=== PATIENT | female | born 1950 | race African-American/Black ===

== ENCOUNTER 2017-06-05 16:51 | Day surgery (SDC) | payer MEDICARE | END 2017-06-05 20:54 | disposition home or self-care (01) | LOC: ONC 16:51 → ONC/OP 16:51 | PROVIDERS: ATTEND Internal Medicine Hematology & Oncology | PROC: 30233N1 Transfusion of Nonautologous Red Blood Cells into Peripheral Vein, Percutaneous Approach (ICD-10-PCS; principal; 2017-06-05) | DX: D64.9 Anemia, unspecified (principal); D69.6 Thrombocytopenia, unspecified; Z88.1 Allergy status to other antibiotic agents; Z88.8 Allergy status to other drugs, medicaments and biological substances; Z87.891 Personal history of nicotine dependence | CPT/HCPCS: 36415; 80053; 82248; 83615; 84100; 84550; 86850; 86870; 86900; 86901; 86922 ==

== ENCOUNTER 2017-06-06 11:17 | Day surgery (SDC) | payer MEDICARE ==
[2017-06-06] MEDS ORDERED: Acetaminophen 500 MG TAB PO SCH (11:45)
[2017-06-06] MEDS ORDERED: diphenhydrAMINE 25 MG CAP PO SCH (11:45)
[2017-06-06] MEDS ORDERED: Sodium Chloride 0.9% 20 ML ONE (11:48)
[2017-06-06 11:57] LABS: IRF 0.397 Ratio (0.163-0.362); Reticulocyte Count 3.9 % (0.5-1.5)
[2017-06-06 17:01] VITALS: BP 99/70; TEMP 97.9
[2017-06-06 18:00] LABS: #Lymphocytes 0.3 thou/uL (1.20-3.40); #Monocytes 0.3 thou/uL (0.11-0.59); #Neutrophils 5.9 thou/uL (1.40-6.50); %Eosinophils 0.4 % (0.0-10.0); Hematocrit 29.7 % (36.0-47.0); Mean Platelet Volume 6.5 fL (7.4-10.4); Red Blood Cell (RBC) Count 3.48 mill/uL (4.20-5.40); White Blood Cell (WBC) Count 6.5 thou/uL (4.8-10.8)
== END 2017-06-06 17:48 | disposition home or self-care (01) ==
LOC: ONC/OP 11:17
PROVIDERS: ATTEND Internal Medicine Hematology & Oncology
PROC: 30233N1 Transfusion of Nonautologous Red Blood Cells into Peripheral Vein, Percutaneous Approach (ICD-10-PCS; principal; 2017-06-06)
DX: D64.9 Anemia, unspecified (principal); D69.6 Thrombocytopenia, unspecified; Z88.1 Allergy status to other antibiotic agents; Z88.8 Allergy status to other drugs, medicaments and biological substances; Z87.891 Personal history of nicotine dependence
CPT/HCPCS: 36415; 36430; 85025; 85046; 86850; 86870; 86900; 86901; 86922; A4216; P9016

== ENCOUNTER 2017-06-26 13:56 | Inpatient (IN) | payer MEDICARE ==
[2017-06-26 14:19] LABS: Oxyhemoglobin 91.8 % (94.0-97.0); Sodium 134 mmol/L (135-148)
[2017-06-26 14:20] LABS: Modified Allen's Test POSITIVE; Vent NO
[2017-06-26 14:31] LABS: Hematocrit 24.1 % (36.0-47.0); Mean Platelet Volume 7.4 fL (7.4-10.4); Red Blood Cell (RBC) Count 2.73 mill/uL (4.20-5.40); White Blood Cell (WBC) Count 13.7 thou/uL (4.8-10.8)
[2017-06-26 14:36] LABS: Prothrombin Time 15.1 SEC (12.0-14.7)
[2017-06-26 14:37] LABS: PTT 41.5 SEC (22.9-36.1)
[2017-06-26 14:53] LABS: ALT (SGPT) 19 U/L (8-55); AST (SGOT) 19 U/L (5-34); Alkaline Phosphatase 148 U/L (40-150); Anion Gap 21 mmol/L (10-20); BUN (Urea Nitrogen) 26 mg/dL (9.8-20.1); Bilirubin, Total 0.3 mg/dL (0.2-1.2); CK (CPK) 150 U/L (29-168); Calc. Creatinine Clearance 0 mL/min (70-130); Calcium 9.2 mg/dL (7.8-10.44); Carbon Dioxide 17 mmol/L (23-31); Chloride 98 mmol/L (98-107); Estimated GFR-MDRD 70; Globulin 5.4 g/dL (2.4-3.5); Lipase 9 U/L (8-78); Protein, Total 8.6 g/dL (6.0-8.3)
[2017-06-26 14:59] LABS: Anisocytosis SLIGHT = 6-15 cells (100X) (0-5/hpf); Band 15 % (5-11); Hypochromia SLIGHT = 6-15 cells (100X) (0-5/hpf); Metamyelocyte 1 % (0-0); Neutrophil 66 % (42-75); Reactive Lymphocytes 2 % (0-10)
--- NOTE | 2017-06-26 14:59 | RAD ---
PORTABLE CHEST 1 VIEW: DATE: 06/26/17. TIME: 2:38 p.m. HISTORY: Shortness of breath and hemoptysis. FINDINGS: The heart size is normal. There is mild elevation of the right hemidiaphragm. There is an opacity in the right upper lobe. Pt is scheduled for a CTPA. POS: [facility]
[2017-06-26 15:01] LABS: Troponin I Less than 0.010 ng/mL (< 0.028)
[2017-06-26 15:45] LABS: Bilirubin Negative (Negative); Blood, Urine Negative (Negative); Glucose, Urine (Dipstick) 500 mg/dL (Negative); Ketone, Urine Negative (Negative); Nitrite Negative (Negative); Protein, Urine (Dipstick) Negative (Neg-Trace)
[2017-06-26] MEDS ORDERED: ISOVUE-370 76%-LOCM 1 ML ONE (15:46)
--- NOTE | 2017-06-26 16:04 | CT ---
CTA CHEST WITH 3D VOLUME RENDERING: CLINICAL HISTORY: Dyspnea. FINDINGS: No evidence of a significant filling defect of the pulmonary arteries. There is truncation of a sub segmental right upper lobe pulmonary arterial branch due to adjacent confluent soft tissue. There i s a large mass-like opacity of the right hilar/suprahilar region as well as a large cavitary lesion occupying the right upper lobe with surrounding consolidation containing air bronchograms. Spiculat ed nodule of the left upper lobe with internal cavitation versus adjacent bronchiectasis present. N odular opacity measures 2.6 x 2.4 cm in axial diameter. There are several additional bilateral reti culonodular opacities of each lung. No effusion. No pneumothorax. There is abnormal soft tissue o f the mediastinum indicating confluent adenopathy/malignant invasion of right hilar soft tissue mass . Scattered atherosclerotic irregularity of the aorta is present with calcified and noncalcified pl aque. There are metallic clips in the right upper abdomen and partially imaged pneumobilia. Scatte red osseous degenerative changes are present. IMPRESSION: 1. No large central pulmonary embolus. 2. Large right hilar mass with adjacent cavity right upper lobe lesion. 3. Multifocal diffuse bilateral pulmonary nodules, the dominant of which is located within the left upper lobe. Findings are concerning for multifocal metastases in light of the large right hilar ma ss. 4. Confluent soft tissue of the mediastinum which may relate to adenopathy versus invasion of right hilar mass. Recommend pulmonary medicine consultation for further care. 5. Truncation of a subsegmental right upper lobe branch by the above-described soft tissue mass. POS: [facility]
[2017-06-26] MEDS ORDERED: Acetaminophen 650 MG Suppository PR PRN (16:44)
[2017-06-26] MEDS ORDERED: Acetaminophen 325 MG TAB PO PRN (16:44)
[2017-06-26] MEDS ORDERED: Ondansetron HCl/PF 4 MG/2 ML Vial IVP PRN (16:44)
[2017-06-26] MEDS ORDERED: Bisacodyl 5 MG TAB PO PRN (16:44)
[2017-06-26] MEDS ORDERED: Dextrose 5% in Water 1,000 ML IV PRN (16:44)
[2017-06-26] MEDS ORDERED: Dextrose 50% Abboject 50 ML SYRINGE SLOW IVP PRN (16:44)
[2017-06-26] MEDS ORDERED: Ondansetron ODT 4 MG TAB PO PRN (16:44)
[2017-06-26] MEDS ORDERED: cefTRIAXone\\ROCEPHIN 1 GM in Sodium Chloride 0.9% 100 ML IVPB SCH (17:15)
[2017-06-26] MEDS ORDERED: cefTRIAXone\\ROCEPHIN 1 GM, Syringe 0.4 ML in Sterile Water 9.6 ML SLOW IVP SCH (18:00)
[2017-06-26] MEDS: Sodium Chloride 0.9% 1,000 ML IV SCH (18:12)
[2017-06-26] MEDS: Piperacillin/Tazobactam 3.375 GM, Admixture Fee 1 EACH in Sodium Chloride 0.9% 100 ML IVPB SCH ×2 (18:19→23:33)
[2017-06-26] MEDS: HumaLOG 300 UNITS/3 ML VIAL SC PRN ×2 (18:44→22:16)
[2017-06-26] MEDS ORDERED: FLU VACC TS2017-18 (>65YR) 0.5 ML SYRINGE IM ONE (18:45)
[2017-06-26 20:59] LABS: Hematocrit 27.2 % (36.0-47.0)
[2017-06-26] MEDS: Docusate 100 MG CAP PO SCH (21:57)
[2017-06-26] MEDS: Guaifenesin DM 100-10/5 ML UDCUP PO PRN (21:57)
[2017-06-27 03:56] VITALS: BMI 27.6
[2017-06-27 05:32] LABS: Anion Gap 16 mmol/L (10-20); BUN (Urea Nitrogen) 20 mg/dL (9.8-20.1); Calc. Creatinine Clearance 79 mL/min (70-130); Calcium 8.6 mg/dL (7.8-10.44); Carbon Dioxide 21 mmol/L (23-31); Chloride 105 mmol/L (98-107); Estimated GFR-MDRD Greater than 90
--- NOTE | 2017-06-27 05:39 | HP ---
PRIMARY CARE PHYSICIAN: Dr. Freedman. CHIEF COMPLAINT: Coughing up blood and respiratory distress. HISTORY OF PRESENT ILLNESS: This is a 66-year-old -[place] female with past medical history of diabetes, hypertension, hyperlipidemia, and a previous smoker who quit 8 years ago. She was mariela gnosed with lung cancer and earlier this year has been seeing Dr. Mckinney and saw Dr. Quiroga for radi ation therapy. She started chemotherapy about 3 weeks ago, was getting her second treatment. She w as in Dr. Mckinney' office and she had sudden onset of respiratory distress and coughing up a large a mount of blood at least 300 mL. This is accompanied with chest pain, pressure and trouble breathing . Her oxygen saturation dropped into the 70s in Dr. Mckinney' office, so an ambulance was called. I n the ER, the patient had O2 sat of 80% and had increased work of breathing. She had a nonrebreathe r and then eventually a BiPAP placed with resolution of her coughing, shortness of breath, and chest pain. Her oxygen saturation is now 100% on BiPAP. Patient had some very minimal hemoptysis with c oughing up sputum with minimal hemoptysis for she was diagnosed with the lung cancer, but has not ferguson d any problems with it since, has had no recent bleeding other than that. She has had a low blood c ount, however, was noted to have hemoglobin of 6 before her treatment today. PAST MEDICAL HISTORY: 1. 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 2. Diabetes mellitus type 2, on oral hypoglycemics. 3. Hypertension. 4. Hyperlipidemia. 5. Anemia. PAST SURGICAL HISTORY: 1. Lymph node removal. 2. Cholecystectomy. 3. section. 4. Hysterectomy. PSYCHIATRIC HISTORY: None. SOCIAL HISTORY: Patient is a former smoker, quit 8 years ago. No alcohol or illicit drug use. She lives at home with her family. FAMILY HISTORY: Hypertension and diabetes in her mother, heart and liver problems in her father, an d a grandmother with colon cancer. ALLERGIES: BACITRACIN and ZINC CONTAINING PRODUCTS. CURRENT MEDICATIONS: Patient does not have her current medication list with her and does not rememb er all of her dosages. She does note that she is on metformin, glyburide, baby aspirin and simvasta tin as well as unknown antihypertensive possibly amlodipine. Family will try and bring up her medic ations from home. REVIEW OF SYSTEMS: Constitutional: No fevers, no chills, no weight changes. Eyes: No double vision or blurred vision . ENT: She had a mild amount of congestion in last few days, but previous 2 episode in the office, no coughing and no sore throat. Cardiovascular: See HPI. No current chest pain, no palpitations or racing heart. Pulmonary: See HPI. Her symptoms have now resolved while she is on BiPAP. Gastr ointestinal: No abdominal pain, no nausea or vomiting, no diarrhea or constipation. Genitourinary: No dysuria or hematuria. Musculoskeletal: No muscle aches or joint pains. Skin: The patient ferguson s noted a rash on her chest and then her right back where it was exposed to radiation. She also get s itchy rash over her extremities fairly regularly unless she uses Dove soap. Neurologic: No numbn ess, tingling or focal weakness. PHYSICAL EXAMINATION: VITAL SIGNS: Blood pressure 99/66, pulse 113 after fluid bolus, respirations 30, O2 sat 95-100% on BiPAP, temperature 97.4. GENERAL: This is a well-developed, obese female who is still breathing up mildly f ast, but no longer in respiratory distress on the BiPAP and is able to talk comfortably on it. HEENT: Pupils equal, round, and reactive to light. Conjunctival membranes are very pale. Orophary nx clear. NECK: Supple, no lymphadenopathy, no thyroid nodules or enlargement, no JVD. HEART: Regular rate and rhythm, no murmurs, rubs or gallops. LUNGS: Patient has rhonchi bilaterally, decent air movement bilaterally with the BiPAP. ABDOMEN: Obese, distended, soft, and on palpation is nontender. No organomegaly or masses palpable. Normoac tive bowel sounds. EXTREMITIES: No clubbing, cyanosis or edema. SKIN: The patient does have some desquamation and irritation of the right anterior chest and the ri ght posterior back likely from radiation. No evidence of cellulitis or infection. NEUROLOGIC: Cranial nerves intact and equal bilaterally without facial droop. She has clear speech . Her deep tendon reflexes are 2+ in all extremities. Her strength is 5/5 in all extremities. PSYCHIATRIC: Alert, oriented x3, normal mood and affect, normal judgment and insight. LABORATORY DATA: CBC with white blood cell count 13.7, bands are elevated at 15, neutrophils normal at 66, lymphocytes low at 10, hemoglobin 7.6, hematocrit 24.1, platelet count 835. PT elevated at 15.1, INR is 1.28, and PTT is 41.5. Blood gas shows a pH of 7.34, pCO2 of 37, pO2 of 77 on the BiPA P. Complete metabolic panel notable for a sodium of 131, bicarbonate of 17, anion gap of 21, BUN of 26, creatinine 0.96 and glucose elevated at 383, lactic acid was elevated initially at 4. Her albu min was a little low at 3.2. The remainder of her LFTs are unremarkable. Cardiac marker set negati ve x1. Brain natriuretic peptide normal at 98. Urinalysis showed glucose, no other abnormalities. Chest x-ray: I did review the chest x-ray done in the emergency room along with the radiologist's report, it does show a normal heart size and mild elevation of the right hemidiaphragm and an opacit y in the right upper lobe. CT angio of the chest shows no pulmonary embolism, but a large right hil ar mass with adjacent cavitary upper lobe lesion multiple diffuse bilateral pulmonary nodules concer missy for metastases and mediastinal mass as well concerning for adenopathy versus invasion by the ma ss and then some opacification of some of the right upper lobe by the mass as well. ASSESSMENT: 1. Acute hypoxic respiratory failure, improved on BiPAP, likely secondary to hemoptysis into the ai rways. 2. Large amount of hemoptysis. The patient now appears hemodynamically stable, though she is at [facility] for bleeding again and this is likely from the necrosis of the cancer from the cancer treatments with radiation and chemotherapy. We will go ahead and transfuse 2 units of packed red blood cells h ere in the emergency room and watch closely for further bleeding, we will keep patient on the BiPAP for now and we will monitor closely in the ICU. Dr. Martines will evaluate and determine how long she n eeds to be on the BiPAP. 3. Anemia secondary to cancer and to bleeding as above, transfusion and monitor closely. 4. Diabetes mellitus type 2. We will put patient on insulin sliding scale as needed. We will hold her metformin for now. We will try and find out her home dosages and medications. 5. Hypertension. The patient is actually currently mildly hypotensive. We will hold all blood pre ssure medications. For now, we will try and find out what her home medications are. 6. GI prophylaxis. Put the patient on Protonix daily. 7. Deep venous thrombosis prophylaxis. Put the patient on sequential compression devices and TEDs while in bed. We will hold on any sort of blood thinners due to her active bleeding. 8. Code status. I did discuss this at length with the patient. She says she is okay with CPR to t ry a little bit though she would wanted to be tried very long, but she is adamant that she does not want any intubations. She is a DO NOT INTUBATE. She never wants to be on a ventilator even tempora rily. The patient states that should she be incapacitated, her 2 sons would make medical decisions for her, their names are Anthony Guzman and the other one is Becki Guzman.
--- NOTE | 2017-06-27 05:57 | CON ---
DATE OF CONSULTATION: 06/26/2017 HISTORY OF PRESENT ILLNESS: A 66-year-old female who sees Dr. Mckinney, she was there in the office for routine followup for chemotherapy and apparently developed a large volume of hemoptysis about 30 0 mL. 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 Stage IV. She sees a doctor at [facility]. She has never coughed up any blood before she has had previous minimal hemoptysis. According to her daughter with whom she stays, she is able to carry on her usual household duties wi thout getting too short of breath. She is a former smoker, quit smoking several years ago. A pack and a half a day for almost 50 years. PAST MEDICAL HISTORY: Otherwise, pertinent for diabetes, hypertension, hyperlipidemia, asthma, cerv ical cancer, anemia and reflux. PAST SURGICAL HISTORY: Gallbladder, hysterectomy, eye surgery, bronchoscopy, partial hysterectomy, and cataract surgery. ADDITIONAL MEDICATIONS: From home included nebulizer, vitamin, Zofran, Flonase, glipizide 5, calciu m, and amlodipine 5. SOCIAL and FAMILY HISTORY: She apparently worked at [employer] one time. PHYSICAL EXAMINATION: VITAL SIGNS: , blood pressure , respirations 17. CHEST: Revealed bilateral rhonchi and crackles. CARDIAC: Sinus tachycardia. ABDOMEN: Soft. LABORATORY: White count 13,000, H and H 7 and 24, platelet count 835, 65 segs, 15 bands. INR 1.2, PO2 of 77, PCO2 37, pH 7.34, on BiPAP. Sodium 131. BNP is normal. X-ray shows a rather extensive upper lung cavitary mass with some volume loss. CAT scan confirmed this. No evidence of PE was see n, large right hilar mass, cavitary lesion. Multifocal pulmonary nodules. IMPRESSION: 1. Hemoptysis secondary to squamous cell carcinoma. 2. Metastatic disease stage IV, chronic obstructive pulmonary disease, asthma, diabetes. PLAN: Discussed with the family at length. I would not been favored intubating the patient, they w ill make a decision soon. Start on empiric steroids, neb treatments, and cough syrup. We will follow her in the ICU. May consider doing a bronchoscopy if hemoptysis persists, try and in ject some epinephrine. A Forty-five minutes critical care time.
[2017-06-27 06:01] LABS: Band 36 % (5-11); Hematocrit 24.2 % (36.0-47.0); Mean Platelet Volume 7.3 fL (7.4-10.4); Neutrophil 59 % (42-75); Red Blood Cell (RBC) Count 2.74 mill/uL (4.20-5.40); White Blood Cell (WBC) Count 9.9 thou/uL (4.8-10.8)
[2017-06-27] MEDS: Piperacillin/Tazobactam 3.375 GM, Admixture Fee 1 EACH in Sodium Chloride 0.9% 100 ML IVPB SCH (06:25)
[2017-06-27] MEDS: HumaLOG 300 UNITS/3 ML VIAL SC PRN ×4 (06:26→21:16)
--- NOTE | 2017-06-27 08:45 | PRG ---
DATE OF SERVICE: 06/27/2017 SUBJECTIVE: This morning, awake, alert, responsive, no further hemoptysis. PHYSICAL EXAMINATION: VITAL SIGNS: Blood pressure is 140/68, pulse 118, 95% sats on 2 liters. I's and O's have been 116 5 in, 490 out. CHEST: Chest reveals decreased breath sounds without any wheezing. CARDIAC: Normal S1, S2. ABDOMEN: Soft, no masses. LABORATORY: H\T\H is 7 and 24, platelet counts is 771, 59 segs, 36 bands. Electrolytes are normal. Her chest x-ray shows persistent right upper lung mass density. IMPRESSION: 1. Hemoptysis, improved. 2. Squamous cell carcinoma, status post chemoradiation. 3. Thrombocytosis. 4. No further hemoptysis. 5. Chronic obstructive pulmonary disease. PLAN: Switch over to oral medications. She can transfer out of the ICU. Discharge home in the nex t 24-48 hours.
[2017-06-27] MEDS ORDERED: Pantoprazole 40 MG VIAL IVP SCH (09:00)
--- NOTE | 2017-06-27 09:06 | PDOC.PN ---
- Subjective Encounter Start Date: 06/27/17 Encounter Start Time: 09:20 Subjective: Minimal hemoptysis overnight. Feeling much better. No SOB/Chest pain. - Objective Resuscitation Status: Resuscitation Status DNI:No Intubation MAR Reviewed: Yes Vital Signs & Weight: Vital Signs (12 hours) Temp Pulse Resp Pulse Ox 06/27/17 08:00 97.8 F 112 H 23 H 94 L 06/27/17 07:29 99 06/27/17 07:25 102 H 23 H 99 06/27/17 04:00 98.0 F 06/27/17 00:45 98 06/27/17 00:00 98.0 F Weight Weight 140 lb 11.2 oz Most Recent Monitor Data Heart Rate from ECG 100 NIBP 114/68 NIBP BP-Mean 85 Respiration from ECG 34 SpO2 94 I&O: 06/26/17 06/27/17 06/28/17 06:59 06:59 06:59 Intake Total 1165 200 Output Total 490 Balance 675 200 Result Diagrams: 06/27/17 04:48 06/27/17 04:48 Additional Labs: Accuchecks 06/27/17 06/26/17 06/26/17 04:48 22:12 18:47 POC Glucose 251 H 399 H 380 H Phys Exam - Physical Examination Constitutional: NAD HEENT: moist MMs Respiratory: no wheezing, no rales bilateral rhonchi and coarse breath sounds Cardiovascular: RRR, no significant murmur Gastrointestinal: soft, positive bowel sounds Neurological: non-focal, moves all 4 limbs Psychiatric: normal affect, A&O x 3 Dx/Plan (1) Major hemoptysis Code(s): R04.2 - HEMOPTYSIS Status: Resolved (2) Squamous cell carcinoma of lung Code(s): C34.90 - MALIGNANT NEOPLASM OF UNSP PART OF UNSP BRONCHUS OR LUNG Status: Chronic (3) COPD (chronic obstructive pulmonary disease) Status: Acute (4) Thrombocytosis Status: Acute (5) Hypertension Code(s): I10 - ESSENTIAL (PRIMARY) HYPERTENSION Status: Chronic Plan: BP still running low normal, continue to hold home medications - Plan cont current plan of care, PT/OT, out of bed/ambulate, DVT proph w/SCDs Stable for transfer to the floor. * . - Discharge Day Encounter end time: 09:40
--- NOTE | 2017-06-27 09:20 | RAD ---
PORTABLE CHEST: History: Ventilated patient. Comparison: Prior day. FINDINGS: The cavitary lesion in the right upper lobe is again seen with dependent debris within this cavitary lesion. Nodularity in left upper lobe is also present. Cardiac silhouette and mediastinal contours are similar. Opacities are seen within the right middle lobe. IMPRESSION: 1. Dominant cavitary lesion in the right upper lobe with dependent mass may represent debris with a primary malignancy. 2. Smaller cavity areas in the left upper lobe and lingula as well as mild opacification in the righ t middle lobe. POS: [facility]
[2017-06-27] MEDS: Docusate 100 MG CAP PO SCH ×2 (09:47→21:15)
[2017-06-27] MEDS: Amoxicillin/Potassium Clav 500 MG TAB PO SCH ×2 (09:47→21:15)
[2017-06-27] MEDS: predniSONE 20 MG TAB PO SCH (09:47)
[2017-06-27] MEDS: Guaifenesin DM 100-10/5 ML UDCUP PO PRN ×2 (11:24→21:55)
--- NOTE | 2017-06-27 11:58 | PQF ---
CLINICAL DOCUMENTATION IMPROVEMENT CLARIFICATION FORM: ICD-10 Updated PLEASE DO AN ADDENDUM TO THE PROGRESS NOTE WITH ANY DOCUMENTATION UPDATES OR ADDITIONS AND CARRY THROUGH TO DC SUMMARY. THANK YOU. DATE: 06/27/17 ATTN: DR. DEVINE Please exercise your independent, professional judgment in responding to the clarification form. Clinical indicators are provided on the bottom of this form for your review Please check appropriate box(s): [ X ] Acute blood loss anemia [ ] Post-op anemia related to acute blood loss [ ] Anemia: [ ] Aplastic [ ] Nutritional [ ] Drug induced (specify) ___ [ ] Hemolytic [ ] Hereditary [ ] Acquired [ ] Autoimmune [ ] Non-autoimmune [ ] Enzyme disorder [ X ] Chronic Anemia: [ X ] Blood loss [ ] Hemolytic [ ] Simple [ ] Due to Vitamin B12 Deficiency [ ] Other [ X ] Anemia of Chronic Disease (please specify) ___due to cancer [ ] Anemia due to Neoplasm: [ ] Primary [ ] Secondary [ ] Anemia due to (please choose): [ ] Due to Chemotherapy [ ] Due to Radiotherapy [ ] Due to Immunotherapy [ ] Other diagnosis [ ] Unable to determine In addition, please specify: Present on Admission (POA): [ ] Yes [ ] No [ ] Unable to determine For continuity of documentation, please document condition throughout progress notes and discharge summary. Thank You. CLINICAL INDICATORS - SIGNS / SYMPTOMS / LABS H&P: "SHE WAS IN DR. GUEVARA' OFFICE AND SHE HAD SUDDEN ONSET OF RESPIRATORY DISTRESS AND COUGHING UP A LARGE AMOUNT OF BLOOD, AT LEAST 300ML." HGN 7.6 RISKS: HEMOPTYSIS LUNG CANCER TREATMENT: SERIAL LABS 2 UNITS PACKED CELLS CRITICAL CARE MONITORING (This form is maintained as a part of the permanent medical record) 2014 [employer]. All Rights Reserved [employer]
[2017-06-27] MEDS: Sodium Chloride 0.9% 1,000 ML IV SCH (16:34)
[2017-06-28 00:55] VITALS: BP 123/83
[2017-06-28] MEDS: Guaifenesin DM 100-10/5 ML UDCUP PO PRN (05:19)
[2017-06-28] MEDS: HumaLOG 300 UNITS/3 ML VIAL SC PRN (05:20)
[2017-06-28 05:32] LABS: #Lymphocytes 0.3 thou/uL (1.20-3.40); #Monocytes 0.2 thou/uL (0.11-0.59); #Neutrophils 8.1 thou/uL (1.40-6.50); %Eosinophils 0.2 % (0.0-10.0); %Lymphocytes 3.4 % (21.0-51.0); %Monocytes 2.5 % (0.0-10.0); Hematocrit 23.9 % (36.0-47.0); Red Blood Cell (RBC) Count 2.67 mill/uL (4.20-5.40); White Blood Cell (WBC) Count 8.6 thou/uL (4.8-10.8)
--- NOTE | 2017-06-28 07:39 | PDOC.PN ---
- Subjective Encounter Start Date: 06/28/17 Encounter Start Time: 10:00 Subjective: Patient with no further hemoptysis. No active symptoms. Ready to go home. - Objective Resuscitation Status: Resuscitation Status DNI:No Intubation MAR Reviewed: Yes Vital Signs & Weight: Vital Signs (12 hours) Temp Pulse Resp BP Pulse Ox 06/28/17 06:44 97 06/28/17 06:42 102 H 16 97 06/28/17 00:57 102 H 18 98 06/28/17 00:27 98 06/28/17 00:00 98.0 F 97 20 123/83 97 Weight Weight 140 lb 11.2 oz Most Recent Monitor Data Heart Rate from ECG 98 NIBP 115/76 NIBP BP-Mean 82 Respiration from ECG 25 SpO2 100 I&O: 06/27/17 06/28/17 06/29/17 06:59 06:59 06:59 Intake Total 1165 1930 Output Total 490 Balance 675 1930 Result Diagrams: 06/28/17 05:13 06/27/17 04:48 Additional Labs: Accuchecks 06/28/17 06/27/17 06/27/17 05:13 21:15 16:37 POC Glucose 205 H 278 H 344 H 06/27/17 11:30 POC Glucose 339 H Phys Exam - Physical Examination Constitutional: NAD HEENT: moist MMs Respiratory: no wheezing, no rales, no rhonchi Cardiovascular: RRR, no significant murmur Gastrointestinal: soft, positive bowel sounds Neurological: non-focal, moves all 4 limbs Psychiatric: normal affect, A&O x 3 Dx/Plan (1) Major hemoptysis Code(s): R04.2 - HEMOPTYSIS Status: Resolved (2) Squamous cell carcinoma of lung Code(s): C34.90 - MALIGNANT NEOPLASM OF UNSP PART OF UNSP BRONCHUS OR LUNG Status: Chronic (3) COPD (chronic obstructive pulmonary disease) Status: Acute (4) Thrombocytosis Status: Acute (5) Hypertension Code(s): I10 - ESSENTIAL (PRIMARY) HYPERTENSION Status: Chronic (6) Diabetes mellitus type 2 in obese Code(s): E11.69 - TYPE 2 DIABETES MELLITUS WITH OTHER SPECIFIED COMPLICATION; E66.9 - OBESITY, UNSPECIFIED Status: Chronic Comment: Blood sugars elevated. Resume home meds. Insulin sliding scale. (7) Anemia due to acute blood loss Code(s): D62 - ACUTE POSTHEMORRHAGIC ANEMIA Status: Acute Comment: On top of anemia of chronic disease. Stable. - Plan cont current plan of care, continue antibiotics Home when stable from respiratory standpoint * . - Discharge Day Encounter end time: 10:30
[2017-06-28] MEDS ORDERED: metFORMIN 500 MG TAB PO SCH (08:00)
[2017-06-28] MEDS ORDERED: Non-Formulary Item 1 EACH (Metformin Hcl [Metformin Hcl] 1,000 MG) PO SCH (08:00)
[2017-06-28] MEDS: predniSONE 20 MG TAB PO SCH (08:13)
[2017-06-28] MEDS: Docusate 100 MG CAP PO SCH (08:13)
[2017-06-28] MEDS: Amoxicillin/Potassium Clav 500 MG TAB PO SCH (08:13)
[2017-06-28] MEDS ORDERED: glipiZIDE 5 MG TAB PO SCH (09:00)
--- NOTE | 2017-06-28 12:27 | PRG ---
DATE OF SERVICE: 06/28/2017 SUBJECTIVE: Minimal hemoptysis, but clean. No large volume. No fever, no chills. She is less shor t of breath. PHYSICAL EXAMINATION: VITAL SIGNS: Stable. CHEST: Decreased breath sounds without any wheezing. CARDIAC: Normal S1, S2. ABDOMEN: Soft, no masses. IMPRESSION: Hemoptysis, right upper lung cavitary squamous cell carcinoma. PLAN: The patient has much improved intensity of coughing and hemoptysis has decreased substantially . She can be discharged home on Augmentin 500 twice a day for 5 days, prednisone 10 a day for 5 days and Robitussin-DM cough syrup as needed. Follow up with Dr. Mckinney and her primary bulb filler.
[2017-06-28 14:06] VITALS: TEMP 99
--- NOTE | 2017-06-28 14:14 | DIS ---
PRIMARY CARE PHYSICIAN: Jerri judge. DIAGNOSES ON ADMISSION: 1. Acute hypoxic respiratory failure secondary to #2. 2. Large hemoptysis. 3. Lung cancer, status post radiation and receiving chemotherapy. 4. Anemia secondary to cancer and acute blood loss. 5. Diabetes mellitus type 2. 6. Hypertension. DIAGNOSES ON DISCHARGE: 1. Acute hypoxic respiratory failure, resolved. 2. Large hemoptysis, resolved. 3. Lung cancer, receiving chemotherapy. 4. Anemia secondary to cancer and bleeding, improved. 5. Diabetes mellitus type 2. 6. Hypertension. LABORATORY DATA: Original hemoglobin was 6, as an outpatient up to 7.6, after first transfusion up t o 8.7, after second unit did slowly declined and stabilizes at 7.4. No further bleeding in the hospi forrest. INR 1.2. Blood sugars were in the 200s-300s. Her creatinine was normal. SUMMARY OF HOSPITAL COURSE: This is a 66-year-old -[place] female with a history of squamous cell carcinoma of the lung, status post radiation and now receiving chemotherapy who had large hemop tysis in Dr. Mckinney office. She also had respiratory distress and sent to the ER, had O2 sats in th e 70s and was put on BiPAP and her saturation improved and her hemoptysis resolved. The patient was transfused with 2 units of packed red blood cells. She did well in the hospital with minimal sputum blood tinged without any further large hemoptysis. Her vital signs were stable. She was evaluated b y Pulmonology, Dr. Martines and put her on steroids and antibiotics. On the day of discharge, she was mu ch improved, breathing well on room air with minimal blood tinged sputum. Her blood pressure was ini tially low and antihypertensives were held. Her blood pressure is improved by the time of discharge. DISCHARGE MANAGEMENT: Discharged home. FOLLOWUP: Follow up with Dr. Mckinney in his office. ACTIVITY: As tolerated. DIET: Diabetic diet. DISCHARGE MEDICATIONS: 1. Augmentin 500 mg twice a day for 5 days. 2. Prednisone 20 mg daily for 5 days. She is to resume all her medications. She is to hold her blo od pressure medications if her blood pressure is less than 120 systolic.
[2017-06-28] MEDS ORDERED: traZODone HCl 50 MG TAB PO SCH (21:00)
== END 2017-06-28 12:05 | disposition home health service (06) | DRG 189 ==
LOC: ERS 13:56 → CCU 15:52 → ONC 06-27 13:43
PROVIDERS: ADMIT Emergency Medicine; ATTEND Emergency Medicine
PROC: 5A09357 Assistance with Respiratory Ventilation, Less than 24 Consecutive Hours, Continuous Positive Airway Pressure (ICD-10-PCS; principal; 2017-06-26)
PROC: 30233N1 Transfusion of Nonautologous Red Blood Cells into Peripheral Vein, Percutaneous Approach (ICD-10-PCS; 2017-06-26)
DX: J96.01 Acute respiratory failure with hypoxia (principal); I95.9 Hypotension, unspecified; C34.11 Malignant neoplasm of upper lobe, right bronchus or lung; D62 Acute posthemorrhagic anemia; J44.9 Chronic obstructive pulmonary disease, unspecified; R04.2 Hemoptysis; I10 Essential (primary) hypertension; D47.3 Essential (hemorrhagic) thrombocythemia; D63.0 Anemia in neoplastic disease; E11.9 Type 2 diabetes mellitus without complications; E78.5 Hyperlipidemia, unspecified; Z87.891 Personal history of nicotine dependence; K21.9 Gastro-esophageal reflux disease without esophagitis; E66.9 Obesity, unspecified; Z68.27 Body mass index [BMI] 27.0-27.9, adult
CPT/HCPCS: 36415; 36416; 36430; 51701; 71010; 71275; 80048; 80053; 81003; 82248; 82553; 82805; 83605; 83615; 83690; 83880; 84100; 84484; 84550; 85025; 85060; 85610; 85730; 86850; 86900; 86901; 93005; 94640; 94660; 96360; A4216; A4353; C9113; G8978-GP-CJ; G8979-GP-CH; J0696; J2543; J2920; J7050; J7506; J7620; P9016

== ENCOUNTER 2017-07-19 13:19 | Inpatient (IN) | payer MEDICARE ==
[~2017-07-19 13:19] MED LIST: ISOVUE-370 76%-LOCM 1 ML ONE
[2017-07-19 13:59] LABS: Mean Platelet Volume 7.6 fL (7.4-10.4); Red Blood Cell (RBC) Count 2.74 mill/uL (4.20-5.40); White Blood Cell (WBC) Count 17.4 thou/uL (4.8-10.8)
--- NOTE | 2017-07-19 13:59 | RAD ---
PORTABLE CHEST ONE VIEW: 07/19/2017 1:09 p.m. HISTORY: Shortness of breath. Abdominal pain. Weakness. COMPARISON: 06/27/2017 FINDINGS: There are new patchy infiltrates in the left mid lung and in the right lower lung. The mass like den sity in the right upper lobe noted on the previous study is not seen on the current study. However, there is mass like fullness in the right hilar/perihilar region. No pneumothoraces or large effusion s are seen. POS: [facility]
[2017-07-19 14:14] LABS: Bilirubin Negative (Negative); Blood, Urine Trace (Negative); Glucose, Urine (Dipstick) 100 mg/dL (Negative); Ketone, Urine Negative (Negative); Nitrite Negative (Negative); Protein, Urine (Dipstick) 100 mg/dL (Neg-Trace)
[2017-07-19 14:16] LABS: ALT (SGPT) 19 U/L (8-55); AST (SGOT) 18 U/L (5-34); Alkaline Phosphatase 168 U/L (40-150); Anion Gap 14 mmol/L (10-20); BUN (Urea Nitrogen) 16 mg/dL (9.8-20.1); Bilirubin, Total 0.4 mg/dL (0.2-1.2); CK (CPK) 45 U/L (29-168); Calc. Creatinine Clearance 0 mL/min (70-130); Calcium 9.5 mg/dL (7.8-10.44); Carbon Dioxide 26 mmol/L (23-31); Chloride 99 mmol/L (98-107); Estimated GFR-MDRD Greater than 90; Protein, Total 8.1 g/dL (6.0-8.3)
[2017-07-19 14:20] LABS: Troponin I Less than 0.010 ng/mL (< 0.028)
[2017-07-19 14:21] LABS: Anisocytosis SLIGHT = 6-15 cells (100X) (0-5/hpf); Band 13 % (5-11); Hypochromia MODERATE=16-30 cells (100X) (0-5/hpf); Neutrophil 82 % (42-75)
[2017-07-19 14:25] LABS: Bacteria/HPF None Seen HPF (None Seen); Hyaline Casts/LPF 4-6 HYALINE CAST LPF (0-3 Hyaline); Squamous Epithelial 0-3 HPF (0-3)
[2017-07-19 14:31] LABS: Renal Epithelial None Seen HPF (0-3); Transitional Epithelial NONE SEEN HPF (0-3)
[2017-07-19] MEDS ORDERED: Acetaminophen 500 MG TAB ONE (15:09)
--- NOTE | 2017-07-19 15:35 | CT ---
CT BRAIN WITHOUT CONTRAST: HISTORY: Altered mental status. FINDINGS: Comparison is made with the exam of 05/02/08. Changes of cortical atrophy and chronic small-vessel is chemic disease are noted. The ventricular size is appropriate and the basilar cisterns patent. No e vidence of acute infarct, hemorrhage, midline shift, or abnormal extraaxial fluid collections is seen . The bony calvarium is intact. The visualized paranasal sinuses and mastoid air cells are well aer ated. IMPRESSION: No CT evidence of acute intracranial process. POS: [facility]
--- NOTE | 2017-07-19 16:05 | CT ---
NONCONTRAST ENHANCED CTA OF THE CHEST: DATE: 07/19/17. COMPARISON: Comparison is made to a previous exam from 06/26/17. HISTORY: Dyspnea, tachycardia, lung cancer. FINDINGS: Contrast-enhanced CTA of the chest was performed. Two-D and 3D reconstructed images performed on an independent 3D work station. Images demonstrate a cavitary lesion in the right upper lobe. Areas of airspace opacity previously p resent remain; however, some of the areas of patchy airspace opacities, especially in the right lung base, have increased since the previous exam. Similarly, right middle lobe airspace opacity has also increased compatible with, possibly developing pneumonia or additional neoplastic involvement. No evidence of pericardial effusion seen. There is a slightly increasing right-sided pleural effusion. No evidence of filling defect is seen in the pulmonary arteries to suggest pulmonary emboli. Again, intrabiliary gas is seen. Again, extensive right hilar and subcarinal lymphadenopathy is also noted. IMPRESSION: 1. No evidence of pulmonary emboli. 2. Increasing areas of airspace opacity, especially in the lung bases and right middle lobe compatib le with increasing pneumonia or airspace extension of malignancy. POS: [facility]
[2017-07-19] MEDS ORDERED: Piperacillin/Tazobactam 3.375 GM in Sodium Chloride 0.9% 100 ML IVPB SCH (16:30)
[2017-07-19] MEDS ORDERED: Ondansetron HCl/PF 4 MG/2 ML Vial IVP PRN ×2 (18:49→22:22)
[2017-07-19] MEDS ORDERED: Ondansetron ODT 4 MG TAB SL PRN (18:49)
[2017-07-19] MEDS ORDERED: Acetaminophen 325 MG TAB PO PRN (18:49)
[2017-07-19] MEDS ORDERED: Sodium Chloride 0.9% 1,000 ML IV SCH (19:00)
[2017-07-19 21:45] VITALS: BMI 26.9
[2017-07-19] MEDS ORDERED: Loratadine 10 MG TAB PO PRN (22:22)
[2017-07-19] MEDS ORDERED: Bisacodyl 5 MG TAB PO PRN ×2 (22:22)
[2017-07-19] MEDS ORDERED: Benzonatate 100 MG CAP PO PRN (22:22)
[2017-07-19] MEDS ORDERED: Calcium Carbonate 500 MG ChewTAB PO PRN (22:22)
[2017-07-19] MEDS ORDERED: traMADol HCl 50 MG TAB PO PRN (22:22)
[2017-07-19] MEDS ORDERED: Nitroglycerin 0.4 MG TAB (25 Tab Bottle) SL PRN (22:22)
[2017-07-19] MEDS ORDERED: Dextrose 5% in Water 1,000 ML IV PRN (22:22)
[2017-07-19] MEDS ORDERED: Labetalol HCl 100 MG/20 ML VIAL SLOW IVP PRN (22:22)
[2017-07-19] MEDS ORDERED: Senokot 8.6 MG TAB PO PRN ×2 (22:22)
[2017-07-19] MEDS ORDERED: Mag-Al 1200 mg/1200 mg/30 ML UDCUP PO PRN (22:22)
[2017-07-19] MEDS ORDERED: HumaLOG 300 UNITS/3 ML VIAL SC PRN (22:22)
[2017-07-19] MEDS ORDERED: Dextrose 50% Abboject 50 ML SYRINGE SLOW IVP PRN (22:22)
[2017-07-19] MEDS ORDERED: hydrALAZINE 20 MG/ML VIAL SLOW IVP PRN (22:22)
[2017-07-19] MEDS: Acetaminophen 325 MG TAB PO PRN (22:52)
[2017-07-20] MEDS: Diabetic Tussin 200 MG/10 ML UDCUP PO PRN (01:52)
--- NOTE | 2017-07-20 03:30 | HP ---
DATE OF ADMISSION: 07/19/2017 Please note that the patient was seen prior to midnight. PRIMARY CARE PHYSICIAN: Shara Freedman D.O. CHIEF COMPLAINT: Altered mental status and generalized weakness and malaise. HISTORY OF PRESENT ILLNESS: Ms. 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 History is mainly obtained by the patient herself as she is awake, alert, oriented x3. Th ere is no family in the room at this time. Electronic medical records have been reviewed in detail. She was recently admitted to our facility on 06/26/2017 and was discharged on 06/28/2017 after being treated for pneumonia. She presented with large hemoptysis at that time requiring transfusions of 2 units of packed RBCs. She was also found to be hypoxic during her last admission requiring BiPAP. Today, she was brought in by her family to the emergency room for complaints of lethargy and altered mental status. According to the family in the emergency room, she was reportedly more confused and d isoriented and intermittently became unresponsive and was acting abnormal. She was noticed to have s ome crooked face and being off balance. At this time for me, the patient is awake, alert, oriented x3. She reports that she was not feeling very well and has been feeling very weak, mainly yesterday. She also reported that she does not owen mber much about yesterday, but remembers having increased chest tightness and cough. She denies any fevers. She is bringing up phlegm, which is greenish to yellow and brown in color. She denies any h emoptysis. She denies any chest pain. She denies any nausea, vomiting, diarrhea, hematochezia or me tolu. She denies any dysuria, frequency, urgency. Her last chemotherapy was on Monday about 2 days ago. In the emergency room upon presentation, her vital signs include blood pressure of 106/78 with a puls e of 132. Her temperature was 98.5 and her oxygen saturations are actually listed as 63% on room air in the ER records. Her oxygen saturation apparently improved to 97% on 3 liters oxygen. She underwent CT scan of the head, which was unremarkable. CT scan of the chest showed new patchy in filtrate in the left mid lung and right lower lung. Persistent cavitary lesion in the right upper lo be was seen, which is consistent with a known diagnosis of right upper lobe carcinoma. She received broad spectrum IV antibiotics namely vancomycin and Zosyn in the emergency room along with IV fluids and is now being admitted to intermediate care unit with a presumptive diagnosis of sepsis and pneumo saba. PAST MEDICAL HISTORY: 1. Recent admission for hemoptysis, pneumonia, and acute hypoxemic respiratory failure in 06/2017. 2. Anemia secondary to hemoptysis in 06/2017, requiring transfusion. 3. Diabetes mellitus type 2. 4. Hypertension. 5. 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 6. Hypertension. PAST SURGICAL HISTORY: 1. Lymph node removal. 2. Cholecystectomy. 3. section. 4. Hysterectomy. PSYCHIATRIC HISTORY: None. SOCIAL HISTORY: The patient has 2 sons, 8 grandchildren as well as one great grandchildren. She bull es at home with family. She is a former smoker, but quit many years ago. She has a 11-pvfx-noom smo bell history. No history of drug or alcohol abuse. FAMILY HISTORY: Significant for diabetes and hypertension in her mother. Her grandmother had colon cancer. Her father had heart and liver problems. ALLERGIES: Include BACITRACIN and ZINC CONTAINING PRODUCTS. CURRENT MEDICATIONS: As per the most recent discharge summary on 06/28/2017, she was discharged on f ollowing medications: Augmentin for 5 days, prednisone tapering dose. HOME MEDICATIONS: Include the following, trazodone 50 mg at bedtime, metformin 1000 mg p.o. b.i.d., glipizide 5 mg p.o. b.i.d., simvastatin 40 mg daily, lisinopril 20 mg daily, Pepcid 40 mg at bedtime, amlodipine 5 mg daily. REVIEW OF SYSTEMS: The following complete review of systems was negative, unless otherwise mentioned in the HPI or below: Constitutional: Weight loss or gain, ability to conduct usual activities. Skin: Rash, itching. Eyes: Double vision, pain. ENT/Mouth: Nose bleeding, neck stiffness, pain, tenderness. Cardiovascular: Palpitations, dyspnea on exertion, orthopnea. Respiratory: Shortness of breath, wheezing, cough, hemoptysis, fever or night sweats. Gastrointestinal: Poor appetite, abdominal pain, heartburn, nausea, vomiting, constipation, or diarr hea. Genitourinary: Urgency, frequency, dysuria, nocturia. Musculoskeletal: Pain, swelling. Neurologic/Psychiatric: Anxiety, depression. Allergy/Immunologic: Skin rash, bleeding tendency. It is negative except for those mentioned in the history and physical. PHYSICAL EXAMINATION: VITAL SIGNS: Most recent include temperature 98, heart rate anywhere from 105 to 117, respirations a nywhere from 16 to 34, oxygen saturation 96% on room air, blood pressure 108/64. GENERAL: She appears comfortable at this time despite having lots of productive cough during the int erview. She is awake, alert, oriented x3 and is in no acute distress. HEENT: Mucous membrane is moist and pink. No oropharyngeal exudate or erythema. Head is normocepha lic, atraumatic. Pupils equal, reactive to light and accommodation. Extraocular movements intact. NECK: Supple without any lymphadenopathy, JVD or bruit. CHEST: She has clear breath sounds without any wheezing, rales or rhonchi on the left side, but the right lung has decreased breath sounds with almost no breath sounds heard in the right upper region. Rate and rhythm is regular without any murmur, rubs or gallops. ABDOMEN: Soft, nontender, nondistended with positive bowel sounds. EXTREMITIES: Free of any cyanosis, clubbing, or edema. NEUROLOGIC: Nonfocal. SKIN: Free of any rashes or bruises, feel warm and dry to touch. PSYCHIATRIC: Normal affect. LABORATORY EXAMINATION: Her CBC shows WBC is 17.4 with 82% neutrophils and 13% bands. Hemoglobin is 7.7 with hematocrit of 25.0, her last hemoglobin was 7.4 on 06/28/2017. Serum chemistries show sodi um of 135, blood sugar 226, lactic acid 2.0, alkaline phosphatase 168, otherwise liver enzymes within normal limits. Creatine kinase is 45. Cardiac enzymes within normal limits. Albumin is 3.1. Urin alysis shows few wbc's, but negative for leukocyte esterase and nitrites and bacteria. Chest x-ray b y my review shows left lung and right lower lobe infiltrate as well as cavitary appearing mass in the right upper lobe. CT angio of the thorax done in the emergency room is negative for pulmonary embol ism. Otherwise consistent with chest x-ray findings of left lung base and right middle lobe infiltra te. CT scan of the brain by my review has no evidence of hemorrhage or acute infarction. No masses. A 12-lead EKG shows sinus tachycardia with 130 beats per minute without any specific ST or T-wave c hanges. IMPRESSION AND PLAN: 1. Acute respiratory failure secondary to pneumonia. The patient has been stabilized and currently is not hypoxic anymore. We will continue supplemental oxygen and supportive care. IV antibiotics ferguson ve been given in the emergency room and she will be continued on cefepime and vancomycin given the im munocompromised status. We will also consult Pulmonary Medicine in the morning. Currently, she is n ot requiring any invasive or noninvasive ventilation. We will order scheduled as well as needed nebu lizers along with incentive spirometry, Mucinex and cough medicine. 2. Sepsis secondary to pneumonia. Likely postobstructive pneumonia in the setting of lung cancer. Continue antibiotics as above. She will be continued on IV fluids and we will monitor hemodynamics. Hold her antihypertensives given the blood pressure being on the marginal side. She will be monitor ed in the IMCU setting. Urine cultures and blood cultures have been obtained and we will follow the final results. Influenza testing has been negative. Otherwise, supportive care as per #1. 3. History of hypertension. Currently, the blood pressure is on the lower side and we will hold edgar e medications until they can be safely restarted. 4. History of diabetes mellitus type 2. We will avoid metformin to prevent acidosis and renal failu re. She will be treated with insulin sliding scale with frequent Accu-Cheks. 5. Small cell carcinoma of the lung. She will continue chemotherapy as an outpatient. 6. Hyponatremia secondary to pneumonia, possibly syndrome of inappropriate antidiuretic hormone. Mo nitor closely. 7. Elevated alkaline phosphatase of unclear significance. According to the patient, she does not ferguson ve any known metastasis from the cancer. 8. Anemia of chronic kidney disease. The patient also has had recent blood loss anemia due to hemop tysis. We will monitor her H and H closely. There is no active bleed. If needed, she will be trans fused with RBC. 9. Leukocytosis secondary to sepsis with bandemia. 10. Code status: FULL CODE, discussed with the patient. 11. Deep venous thrombosis and gastrointestinal prophylaxis. 12. Add p.r.n. medication orders. DISPOSITION: Ms. Guzman is being admitted to IMCU for severe sepsis secondary to pneumonia. Estimat ed length of stay is at least 2 to 3 midnights. Further management will depend upon her clinical cou rse.
[2017-07-20 05:37] LABS: ALT (SGPT) 13 U/L (8-55); AST (SGOT) 12 U/L (5-34); Alkaline Phosphatase 153 U/L (40-150); Anion Gap 12 mmol/L (10-20); BUN (Urea Nitrogen) 11 mg/dL (9.8-20.1); Bilirubin, Total 0.4 mg/dL (0.2-1.2); Calc. Creatinine Clearance 82 mL/min (70-130); Calcium 8.3 mg/dL (7.8-10.44); Carbon Dioxide 26 mmol/L (23-31); Chloride 101 mmol/L (98-107); Estimated GFR-MDRD Greater than 90; Globulin 3.9 g/dL (2.4-3.5); Protein, Total 6.7 g/dL (6.0-8.3)
[2017-07-20 06:09] LABS: Band 12 % (5-11); Hematocrit 22.9 % (36.0-47.0); Hypochromia SLIGHT = 6-15 cells (100X) (0-5/hpf); Mean Platelet Volume 7.9 fL (7.4-10.4); Neutrophil 83 % (42-75); Red Blood Cell (RBC) Count 2.44 mill/uL (4.20-5.40); White Blood Cell (WBC) Count 14.5 thou/uL (4.8-10.8)
[2017-07-20] MEDS: HumaLOG 300 UNITS/3 ML VIAL SC PRN ×3 (06:14→17:25)
[2017-07-20] MEDS: Sodium Chloride 0.9% 1,000 ML IV SCH ×3 (06:18→17:25)
[2017-07-20] MEDS: Cefepime 2 GM, Syringe 2.5 ML in Sterile Water 10 ML SLOW IVP SCH ×2 (08:51→19:55)
[2017-07-20] MEDS: Vancomycin HCl 1 GM in Premix Bag 1 BAG IVPB SCH (08:52)
[2017-07-20] MEDS ORDERED: Famotidine 20 MG TAB PO SCH (09:00)
[2017-07-20] MEDS ORDERED: Cefepime 2 GM in Sodium Chloride 0.9% 100 ML IVPB SCH (09:00)
[2017-07-20] MEDS: guaiFENesin ER 600 MG TAB PO SCH ×2 (09:06→19:49)
[2017-07-20] MEDS: Acetaminophen 325 MG TAB PO PRN (11:24)
[2017-07-20] MEDS: HYDROcodone/Acetaminophen 5/325 mg Tablet PO PRN (11:38)
--- NOTE | 2017-07-20 11:49 | CON ---
DATE OF CONSULTATION: 07/20/2017 This is 1 hour of critical care time. REASON FOR CONSULTATION: Acute respiratory failure related to possible pneumonia. HISTORY OF PRESENT ILLNESS: This is a 67-year-old female who was admitted to the Hospitalist Service last night after experiencing increasing shortness of breath and altered mental status at home. She has a history of stage IV squamous cell carcinoma of the lung. She is currently undergoing chemothe rapy, the last treatment was 4 days ago. She was in the hospital 1 month ago with massive hemoptysis . The family indicates that the patient has steadily been getting weaker at home. She has had some hemoptysis last night, but nothing massive. PAST MEDICAL HISTORY: 1. Stage IV squamous cell carcinoma of lung. 2. Massive hemoptysis. 3. Diabetes mellitus type 2. 4. Hypertension. 5. Suspected COPD. PAST SURGICAL HISTORY: 1. Lymph node removal. 2. Cholecystectomy. 3. C-sections. 4. Hysterectomy. SOCIAL HISTORY: She smoked a pack a day for about 30 years, currently does not smoke. She has 2 sup portive sons that live near her. ALLERGIES: BACTRIM and ZINC. MEDICATIONS PRIOR TO ADMISSION: She was on trazodone, metformin, glipizide, simvastatin, lisinopril, Pepcid, amlodipine. REVIEW OF SYSTEMS: Remarkable for marked weakness, cough, no fever or chills. She has had some mid sternal chest pain. PHYSICAL EXAMINATION: VITAL SIGNS: Temperature is 100.3, pulse 124, respirations 24, O2 sat 96%, blood pressure 91/67. Sh e is 4 feet 11 inches, weighs 133 pounds. GENERAL: She appears chronically ill. HEENT: Pupils react. Sclerae are anicteric. Oropharynx dry. NECK: No JVD. LUNGS: Coarse rhonchi bilaterally, right worse than left. CARDIOVASCULAR: S1, S2 tachycardic. ABDOMEN: Soft, nontender. EXTREMITIES: No edema. LABORATORY DATA: White blood cell count 14.5, hemoglobin 7.2, hematocrit 23, platelet count 606, sod ium 134, potassium 4.6, chloride 101, CO2 26, BUN 11, creatinine 0.6, glucose 235. Her chest x-ray shows bilateral infiltrative changes, worse on the right. CT of the chest was review ed in detail. She has a cavitary area in her right upper lobe which has worsened since her last scan , previously had air fluid level in it, which I presume was probably blood given the massive hemoptys is. She previously had a fairly discrete right hilar mass which is still present, but not near the s ize as it was last time. However, she has developed interstitial changes peripherally in her right l andres which could be either pneumonia or spread of malignancy. ASSESSMENT: 1. Acute on chronic respiratory failure. 2. Stage IV lung cancer. 3. Pneumonia versus cancer spread. RECOMMENDATIONS: I spent 45 minutes meeting with the patient's 2 sons and then later meeting with [facility] patient herself. I also discussed the case with the patient's sister over the phone. I am greatly concerned that we are dealing with advancing cancer. She could have concurrent pneumonia. I did no t think that moving her and intubating her would be in her best interest. We spent a significant juany unt of time on the end of life issues and the patient is agreeable to DNR status. We will continue t he BiPAP as needed and give her antibiotics. I will ask the Palliative Care Service to see her.
--- NOTE | 2017-07-20 18:07 | PDOC.PN ---
- Subjective Encounter Start Date: 07/20/17 Encounter Start Time: 18:00 Subjective: f/u for sepsis, PNA and metastatic Stage IV SCC lung with current chemotx. -: Receiving Cefepime and Vancomycin. - Objective Resuscitation Status: Resuscitation Status DNR:Do Not Resuscitate MAR Reviewed: Yes Vital Signs & Weight: Vital Signs (12 hours) Temp Pulse Resp BP Pulse Ox 07/20/17 15:07 97.6 F 109 H 22 H 106/62 100 07/20/17 14:00 106 H 22 H 97/68 99 07/20/17 11:53 100 07/20/17 11:52 137 H 36 H 100 07/20/17 11:19 101.6 F H 135 H 24 H 107/76 100 07/20/17 08:00 100.3 F H 124 H 38 H 100 07/20/17 07:02 100.3 F H 124 H 24 H 91/67 96 07/20/17 06:58 122 H 38 H 100 07/20/17 06:57 122 H 35 H 100 Weight Admit Weight 133 lb 9 oz Weight 133 lb 9 oz I&O: 07/19/17 07/20/17 07/21/17 06:59 06:59 06:59 Intake Total 630 1959.5 Output Total 800 800 Balance -170 1159.5 Result Diagrams: 07/20/17 04:21 07/20/17 04:21 Additional Labs: Accuchecks 07/20/17 07/20/17 07/19/17 17:06 10:56 21:18 POC Glucose 238 H 175 H 268 H Microbiology 07/19/17 13:55 Nasal swab Influenza Types A,B Direct EIA - Final 07/19/17 15:32 Venous blood - Left Hand Blood Culture - Preliminary Specimen has been received and culture in progress. No Growth to date. 07/19/17 13:50 Urine Straight Catheter Urine Culture - Preliminary NO GROWTH AT 24 HOURS 07/19/17 13:48 Venous blood - Left Arm Blood Culture - Preliminary Specimen has been received and culture in progress. No Growth to date. Laboratory Tests 07/19/17 07/19/17 13:48 13:48 WBC 17.4 H Hgb 7.7 L Plt Count 678 H Neutrophils % (Manual) 82 H Lactic Acid 2.0 Radiology Reviewed by me: Yes (CTA chest - cavitary region in RUL, extension of malignancy) EKG Reviewed by me: Yes (Tele - sinus tach in 100's) Phys Exam - Physical Examination mod resp distress HEENT: PERRLA Neck: no JVD, supple diminished in bases, coarse sounds bilat tachycardia Gastrointestinal: soft, non-tender, no distention, positive bowel sounds Musculoskeletal: no edema, pulses present Neurological: normal sensation, moves all 4 limbs Psychiatric: A&O x 3 Skin: normal turgor, cap refill <2 seconds Dx/Plan (1) Acute and chronic respiratory failure with hypoxia Code(s): J96.21 - ACUTE AND CHRONIC RESPIRATORY FAILURE WITH HYPOXIA Status: Acute Comment: Continue pulmonary support, BiPAP prn, Duonebs (2) Sepsis Code(s): A41.9 - SEPSIS, UNSPECIFIED ORGANISM Status: Acute Comment: Continue aggressive support, Continue Cefepime and Vancomycin (3) Pneumonia Code(s): J18.9 - PNEUMONIA, UNSPECIFIED ORGANISM Status: Acute Qualifiers: Laterality: right Lung location: middle lobe of lung Comment: Suspected gm+ cocci and obstructive pneumonia due to SCC, see above for mgmt (4) Squamous cell carcinoma of lung Code(s): C34.90 - MALIGNANT NEOPLASM OF UNSP PART OF UNSP BRONCHUS OR LUNG Status: Chronic Qualifiers: Laterality: unspecified laterality Qualified Code(s): C34.90 - Malignant neoplasm of unspecified part of unspecified bronchus or lung Comment: Current chemotherapy, appears to have advanced (5) Diabetes mellitus type 2 in obese Code(s): E11.69 - TYPE 2 DIABETES MELLITUS WITH OTHER SPECIFIED COMPLICATION; E66.9 - OBESITY, UNSPECIFIED Status: Chronic Comment: Blood sugars elevated. Resume home meds. Insulin sliding scale. (6) Normocytic anemia Code(s): D64.9 - ANEMIA, UNSPECIFIED Status: Chronic Comment: Serial H/H monitoring - Plan plan discussed w/ family, continue antibiotics, PT/OT, respiratory therapy, DVT proph w/SCDs Continue Cefepime and Vancomycin -: Add Solumedrol 40mg IV q6h -: Add Phenergan/Codeine cough syrup -: Consult Medical Oncology for any further recommendations -: AM lab: BMP, CBC * DNR status
[2017-07-20] MEDS: Phenergan/Codeine 10-6.25mg/5ml UDCUP PO SCH (19:49)
[2017-07-20] MEDS: Atorvastatin Calcium 20 MG TAB PO SCH (19:50)
[2017-07-21] MEDS: Phenergan/Codeine 10-6.25mg/5ml UDCUP PO SCH ×6 (00:26→20:55)
[2017-07-21] MEDS: Benzonatate 100 MG CAP PO PRN ×3 (00:27→14:25)
[2017-07-21 05:01] LABS: Anion Gap 12 mmol/L (10-20); BUN (Urea Nitrogen) 11 mg/dL (9.8-20.1); Calc. Creatinine Clearance 79 mL/min (70-130); Calcium 8.2 mg/dL (7.8-10.44); Carbon Dioxide 24 mmol/L (23-31); Chloride 101 mmol/L (98-107); Estimated GFR-MDRD Greater than 90
[2017-07-21] MEDS: Sodium Chloride 0.9% 1,000 ML IV SCH ×3 (05:21→20:59)
[2017-07-21] MEDS: HumaLOG 300 UNITS/3 ML VIAL SC PRN ×3 (05:35→17:42)
[2017-07-21 05:37] LABS: Anisocytosis MODERATE=16-30 cells (100X) (0-5/hpf); Band 19 % (5-11); Hematocrit 19.4 % (36.0-47.0); Mean Platelet Volume 7.8 fL (7.4-10.4); Neutrophil 78 % (42-75); Red Blood Cell (RBC) Count 2.08 mill/uL (4.20-5.40); White Blood Cell (WBC) Count 9.8 thou/uL (4.8-10.8)
[2017-07-21] MEDS: HYDROcodone/Acetaminophen 5/325 mg Tablet PO PRN ×2 (07:04→14:24)
[2017-07-21] MEDS: guaiFENesin ER 600 MG TAB PO SCH ×2 (08:35→20:55)
[2017-07-21] MEDS: Vancomycin HCl 1 GM in Premix Bag 1 BAG IVPB SCH ×2 (08:36→20:56)
--- NOTE | 2017-07-21 08:37 | PRG ---
DATE OF SERVICE: 07/21/2017 This morning she is better, less short of breath. X-ray shows a large right upper lung cavitary infi ltrate with a small infiltrate in the base. PHYSICAL EXAMINATION: VITAL SIGNS: Sats 100% on 4 liters, respirations 24, temperature 97, blood pressure 100/61. CHEST: Chest revealed bilateral rhonchi and crackles. CARDIAC: Normal S1-S2. No gallops. ABDOMEN: Soft. No masses. IMPRESSION: 1. Hemoptysis secondary to squamous cell carcinoma. 2. Chronic obstructive pulmonary disease. 3. Anemia. PLAN: Continue steroids, Maxipime. Discontinue vancomycin in 24 hours if cultures are negative. Tr ansfuse a unit of packed cells, comfort care. I will follow.
[2017-07-21] MEDS: Cefepime 2 GM, Syringe 2.5 ML in Sterile Water 10 ML SLOW IVP SCH ×2 (10:10→20:57)
[2017-07-21] MEDS ORDERED: HumaLOG 300 UNITS/3 ML VIAL SC PRN (11:25)
--- NOTE | 2017-07-21 12:15 | CON ---
DATE OF CONSULTATION: 07/21/2017 REASON FOR CONSULTATION: Lung cancer. HISTORY OF PRESENT ILLNESS: Ms. Guzman is a very pleasant, 67-year-old -[place] woman who pr esented in 05/2017 with a new diagnosis of moderately differentiated squamous cell carcinoma. She ferguson d a 7.3 x 6.2 right suprahilar mass with postobstructive collapse of the right upper lobe. There was a prominent hilar and subcarinal adenopathy. There was also a spiculated left upper lobe mass measur ing 2.2 cm with scattered nodules throughout both lungs. She had palliative radiation therapy and re cently started on carboplatin and Gemzar. In June, she had an episode of hemoptysis requiring ad mission. She was treated and transfused and continued chemotherapy. Several days ago, she became hy poxic with altered mental status. She presented to this facility for evaluation. A CT scan again sh owed the cavitary lesion in the right upper lobe. There was extensive right hilar and subcarinal lym phadenopathy. There were some increasing areas of airspace opacity; it was a questionable whether it was pneumonia or worsening malignancy. She was started on IV antibiotics and O2 and has improved ov er the last few days. We were asked to see the patient regarding treatment recommendations. PAST MEDICAL HISTORY: 1. Stage IV squamous cell carcinoma of the right upper lobe with contralateral pulmonary nodules. 2. Diabetes mellitus 2. 3. Hypertension. 4. Hyperlipidemia. 5. Asthma. 6. Cervical cancer in 1978. 7. Acid reflux. PAST SURGICAL HISTORY: 1. Cholecystectomy. 2. Hysterectomy. 3. Breast ductal excision. 4. Eye surgery. 5. Bronchoscopy. ALLERGIES: BACITRACIN and ZINC. HOME MEDICATIONS: 1. Amlodipine 5 mg daily. 2. Aspirin 81 mg daily. 3. Calcium daily. 4. Glipizide 5 mg daily. 5. Metformin 1000 mg b.i.d. 6. Simvastatin daily. 7. Trazodone daily. FAMILY HISTORY: No history of malignancy. SOCIAL HISTORY: . Has 2 sons. Lives with his son and [id number]. A [id number] histor y of smoking, quit in 2013. No alcohol or illicit drug use. REVIEW OF SYSTEMS: A 12 point review of systems is negative except for weakness, shortness of breath , cough, and hemoptysis. PHYSICAL EXAMINATION: VITAL SIGNS: Temperature is 97.2, pulse is 104, respiratory rate 24, BP is 98/69. She is 100% on 3 liters. GENERAL: Well-developed, well-nourished female in no acute distress. HEENT: Normocephalic, atraumatic. Pupils equal and reactive to light. NECK: Supple. CARDIOVASCULAR: Regular rate and rhythm. LUNGS: Scattered rhonchi throughout with wheezes. ABDOMEN: Soft, nontender, bowel sounds are positive. EXTREMITIES: No clubbing, cyanosis or edema. SKIN: No rash. HEMATOLOGIC: No petechia or purpura. NEUROLOGIC: Nonfocal. She is alert and oriented and appropriate. PERTINENT LABORATORY AND X-RAYS: Current WBCs are 9.8, hemoglobin 6.1, hematocrit 19.4, platelet cou nt is 541,000, 78% neutrophils, 20% lymphocytes. Sodium 133, potassium 3.9, chloride 101, CO2 is 24, BUN is 11, creatinine 0.65, calcium is 8.2, total bilirubin is 0.4, AST 11, ALT 13, alkaline phospha tase is 153, serum total protein 6.7, albumin 2.8, globulin 3.9. Radiology per HPI. IMPRESSION: 1. Stage IV squamous cell carcinoma of the right upper lobe. 2. Acute hypoxia. 3. Possible sepsis with pneumonia. DISCUSSION: The patient's CT scan showed slightly worsening disease despite chemotherapy. This was discussed with Dr. Mckinney and the patient and family. She does have the option of immunotherapy. T he patient would like to continue some sort of treatment with the understanding that this is palliati ve. She has agreed to go home with palliative care. She was not on oxygen continuously at home. I suggest that we can wean that off if possible. Would continue the antibiotics per Pulmonary and home when she is stable. Thank you for the consult.
[2017-07-21] MEDS: Diabetic Tussin 200 MG/10 ML UDCUP PO PRN (14:25)
--- NOTE | 2017-07-21 16:20 | PDOC.PN ---
- Subjective Encounter Start Date: 07/21/17 Encounter Start Time: 16:05 Subjective: f/u for sepsis and likely PNA in context of SCC lung CA. Receiving Cefepime -: and Vancomycin with overall improving dyspnea. O2 @ 3L NC. Nsg reports -: 2u PRBC's transfused today. - Objective Resuscitation Status: Resuscitation Status DNR:Do Not Resuscitate MAR Reviewed: Yes Vital Signs & Weight: Vital Signs (12 hours) Temp Pulse Pulse Pulse Pulse Pulse Pulse 07/21/17 15:32 97.7 F 98 07/21/17 14:26 105 H 103 H 102 H 101 H 07/21/17 13:21 98 07/21/17 13:11 97.8 F 102 H 07/21/17 12:58 97.7 F 92 07/21/17 12:55 97.7 F 102 H 07/21/17 11:00 97.2 F L 104 H 07/21/17 10:18 97.8 F 105 H 07/21/17 10:07 97.6 F 110 H 07/21/17 08:37 07/21/17 08:35 105 H 07/21/17 08:15 113 H 110 H 07/21/17 08:00 97.9 F 105 H 07/21/17 07:00 97.9 F 105 H Resp BP BP BP BP BP BP 07/21/17 15:32 24 H 98/64 07/21/17 14:26 97/67 109/68 100/62 102/68 07/21/17 13:21 20 07/21/17 13:11 22 H 108/71 07/21/17 12:58 24 H 98/64 07/21/17 12:55 22 H 91/72 07/21/17 11:00 24 H 98/69 07/21/17 10:18 24 H 99/62 07/21/17 10:07 24 H 107/64 07/21/17 08:37 07/21/17 08:35 18 07/21/17 08:15 103/64 109/66 07/21/17 08:00 18 07/21/17 07:00 24 H 100/61 Pulse Ox Pulse Ox Pulse Ox Pulse Ox Pulse Ox 07/21/17 15:32 98 07/21/17 14:26 98 96 97 97 07/21/17 13:21 98 07/21/17 13:11 100 07/21/17 12:58 98 07/21/17 12:55 98 07/21/17 11:00 100 07/21/17 10:18 97 07/21/17 10:07 99 07/21/17 08:37 100 07/21/17 08:35 100 07/21/17 08:15 100 96 07/21/17 08:00 100 07/21/17 07:00 100 Weight Admit Weight 133 lb 9 oz Weight 134 lb 12.8 oz I&O: 07/20/17 07/21/17 07/22/17 06:59 06:59 06:59 Intake Total 630 3659.5 1300 Output Total 800 1650 1000 Balance -170 2009.5 300 Result Diagrams: 07/21/17 04:18 07/21/17 04:18 Additional Labs: Accuchecks 07/21/17 07/20/17 07/20/17 05:27 20:39 17:06 POC Glucose 273 H 203 H 238 H Microbiology 07/19/17 13:55 Nasal swab Influenza Types A,B Direct EIA - Final 07/19/17 13:50 Urine Straight Catheter Urine Culture - Final NO GROWTH AT 48 HOURS 07/19/17 15:32 Venous blood - Left Hand Blood Culture - Preliminary Specimen has been received and culture in progress. No Growth to date. 07/19/17 15:32 Venous blood - Left Hand Blood Culture - Preliminary NO GROWTH AT 48 HOURS 07/19/17 13:50 Urine Straight Catheter Urine Culture - Preliminary NO GROWTH AT 24 HOURS 07/19/17 13:48 Venous blood - Left Arm Blood Culture - Preliminary Specimen has been received and culture in progress. No Growth to date. 07/19/17 13:48 Venous blood - Left Arm Blood Culture - Preliminary NO GROWTH AT 48 HOURS Laboratory Tests 07/19/17 07/19/17 07/20/17 13:48 13:48 04:21 WBC 17.4 H Hgb 7.7 L Plt Count 678 H Neutrophils % (Manual) 82 H Band Neuts % (Manual) Sodium 134 L Lactic Acid 2.0 Vancomycin Trough 07/20/17 07/21/17 07/21/17 04:21 04:18 07:56 WBC 14.5 H Hgb 7.2 L Plt Count 606 H Neutrophils % (Manual) 83 H 78 H Band Neuts % (Manual) 12 H 19 H Sodium Lactic Acid Vancomycin Trough 5.0 EKG Reviewed by me: Yes (Tele - SR) Phys Exam - Physical Examination Constitutional: NAD HEENT: PERRLA, oral pharynx no lesions Neck: no JVD, supple coarse breath sounds bilat Cardiovascular: RRR Gastrointestinal: soft, non-tender, no distention, positive bowel sounds Musculoskeletal: no edema, pulses present Neurological: normal sensation, moves all 4 limbs Psychiatric: A&O x 3 Skin: normal turgor, cap refill <2 seconds Dx/Plan (1) Acute and chronic respiratory failure with hypoxia Code(s): J96.21 - ACUTE AND CHRONIC RESPIRATORY FAILURE WITH HYPOXIA Status: Acute Comment: Continue pulmonary support, BiPAP prn, Duonebs, Solumedrol, evaluate for home O2 (2) Sepsis Code(s): A41.9 - SEPSIS, UNSPECIFIED ORGANISM Status: Acute Comment: Continue aggressive support, Continue Cefepime and Vancomycin, improved (3) Pneumonia Code(s): J18.9 - PNEUMONIA, UNSPECIFIED ORGANISM Status: Acute Qualifiers: Laterality: right Lung location: middle lobe of lung Comment: Suspected gm+ cocci and obstructive pneumonia due to SCC, see above for mgmt (4) Squamous cell carcinoma of lung Code(s): C34.90 - MALIGNANT NEOPLASM OF UNSP PART OF UNSP BRONCHUS OR LUNG Status: Chronic Qualifiers: Laterality: unspecified laterality Qualified Code(s): C34.90 - Malignant neoplasm of unspecified part of unspecified bronchus or lung Comment: Current chemotherapy, appears to have advanced, oncology consider palliative immunotherapy (5) Diabetes mellitus type 2 in obese Code(s): E11.69 - TYPE 2 DIABETES MELLITUS WITH OTHER SPECIFIED COMPLICATION; E66.9 - OBESITY, UNSPECIFIED Status: Chronic Comment: Blood sugars elevated. Resume home meds. Insulin sliding scale. (6) Normocytic anemia Code(s): D64.9 - ANEMIA, UNSPECIFIED Status: Chronic Comment: Serial H/H monitoring, s/p 2u PRBC's - Plan plan discussed w/ family, continue antibiotics, PT/OT, oncology social work, respiratory therapy, DVT proph w/SCDs Stable currently -: Continue Cefepime and Vancomycin -: Continue Solumedrol 40mg IV q6h -: Duonebs q4h prn -: Appreciate Pulmonology and Oncology assistance * AM lab: BMP, CBC
[2017-07-21] MEDS: Atorvastatin Calcium 20 MG TAB PO SCH (20:54)
[2017-07-22] MEDS: Phenergan/Codeine 10-6.25mg/5ml UDCUP PO SCH ×4 (00:59→14:27)
[2017-07-22 05:02] LABS: Anion Gap 15 mmol/L (10-20); BUN (Urea Nitrogen) 15 mg/dL (9.8-20.1); Calc. Creatinine Clearance 72 mL/min (70-130); Calcium 8.4 mg/dL (7.8-10.44); Carbon Dioxide 23 mmol/L (23-31); Chloride 100 mmol/L (98-107); Estimated GFR-MDRD Greater than 90
[2017-07-22 05:33] LABS: Band 1 % (5-11); Hematocrit 29.2 % (36.0-47.0); Mean Platelet Volume 7.5 fL (7.4-10.4); Neutrophil 94 % (42-75); Red Blood Cell (RBC) Count 3.11 mill/uL (4.20-5.40); White Blood Cell (WBC) Count 10.1 thou/uL (4.8-10.8)
[2017-07-22] MEDS: HumaLOG 300 UNITS/3 ML VIAL SC PRN ×2 (06:25→11:11)
[2017-07-22] MEDS: guaiFENesin ER 600 MG TAB PO SCH (08:18)
[2017-07-22] MEDS: Vancomycin HCl 1 GM in Premix Bag 1 BAG IVPB SCH (08:18)
[2017-07-22] MEDS: HYDROcodone/Acetaminophen 5/325 mg Tablet PO PRN (08:19)
[2017-07-22] MEDS: Sodium Chloride 0.9% 1,000 ML IV SCH (09:46)
[2017-07-22] MEDS: Cefepime 2 GM, Syringe 2.5 ML in Sterile Water 10 ML SLOW IVP SCH (09:46)
[2017-07-22] MEDS: Benzonatate 100 MG CAP PO PRN (11:10)
[2017-07-22] MEDS: Diabetic Tussin 200 MG/10 ML UDCUP PO PRN (11:10)
[2017-07-22 12:10] VITALS: TEMP 97.9
[2017-07-22 15:10] VITALS: BP 119/73
--- NOTE | 2017-07-22 18:29 | DIS ---
DATE OF ADMISSION: 07/19/2017 DATE OF DISCHARGE: 07/22/2017 DISCHARGE DIAGNOSES: 1. Acute on chronic hypoxemic respiratory failure, improved. 2. Right middle lobe pneumonia, suspected gram positive cocci with obstructive component, improved. 3. Sepsis secondarily to #2, resolving. 4. Squamous cell lung carcinoma. 5. Diabetes mellitus type 2. 6. Normocytic anemia, status post 2 units of packed red blood cells, stable. CONSULTATIONS: Dr. Gallo Mckinney with Medical Oncology Service. Dr. Martines with Pulmonology Service. PERTINENT LABORATORY AND X-RAY FINDINGS: Basic metabolic profile within normal limits. Lactic acid level 2.0. LFTs within normal limits. CBC showed a hemoglobin ranging between 6.1-9.4, MCV 94. Whi te blood cell count ranging between 9.8-17.4. Blood cultures x2 dated 07/19/2017 showed no growth at 48 hours. Urine culture dated 07/19/2017 showed no growth at 48 hours. Influenza A and B antigen d ated 07/19/2017 negative. Portable chest x-ray dated 07/19/2017 showed patchy infiltrates in the lef t mid lung and right lower lung zones. Mass-like density in the right upper lobe consistent with squ amous cell carcinoma of the lung previously diagnosed. CT angiogram of the chest dated 07/19/2017, s howed no evidence of pulmonary embolus. Increasing airspace opacity in the lung bases and right midd le lobe compatible with increasing pneumonia with potential malignancy extension. CT of the brain wi thout contrast dated 07/19/2017 showed no acute intracranial process. HOSPITAL COURSE: The patient was admitted to the intermediate care unit after presenting with increa sed shortness of breath, generalized weakness, and malaise in the context of known squamous cell lung carcinoma with current chemotherapy with chest imaging showing evidence of pneumonia as stated previ ously. The patient was placed on broad spectrum IV antibiotic therapy and treated for with sepsis pr otocol. The patient was given aggressive oxygen supplementation as well as IV Solu-Medrol and evalua mary by the Pulmonology Service. The patient continued on aggressive pulmonary supportive measures, i mproving with oxygen support, Solu-Medrol and IV antibiotic therapy. The patient was also evaluated by the medical oncology service after concern for potential extension of current malignancy; however, no specific adjustment to current chemotherapy was recommended in the context of an acute infectious process. The patient did receive 2 units of packed red blood cells, likely mediated from chemothera py with no evidence of acute blood loss. The patient overall clinically stabilized, maintaining O2 s aturations in the mid 90% range on 2 liters per minute by nasal cannula. The patient with current st able vital signs at the time of discharge. The patient ready for discharge on 07/22/2017. DISCHARGE MEDICATIONS: 1. Prednisone 10 mg 2 tabs p.o. b.i.d. x3 days, followed by 3 tabs p.o. daily x 3 days, followed by 2 tabs p.o. daily x 3 days, followed by 1 tab p.o. daily x3 days. 2. Levaquin 500 mg 1 tab p.o. daily x7 days. 3. Promethazine/codeine syrup 5 mL p.o. q.4 hours p.r.n. cough. 4. Amlodipine 5 mg one tab p.o. daily. 5. Pepcid 40 mg p.o. at bedtime. 6. Glipizide 5 mg p.o. b.i.d. 7. Lisinopril 20 mg p.o. daily. 8. Metformin 1000 mg p.o. b.i.d. 9. Simvastatin 40 mg p.o. at bedtime. 10. Trazodone 50 mg p.o. at bedtime. FOLLOWUP: Patient will follow with Dr. Shara Freedman within 7 days of discharge. The patient will follow up with her primary oncologist, Dr. Gallo Mckinney within 7 days of discharge. Patient will f ollow up with Dr. Martines within 2-3 weeks after discharge. CONDITION ON DISCHARGE: Fair. ACTIVITY: Ad shwetha. DIET: ADA. CODE STATUS: Do not resuscitate. DISPOSITION: Home on 07/22/2017. Total time preparing and coordinating discharge 34 minutes.
== END 2017-07-22 15:35 | disposition home or self-care (01) | DRG 871 ==
LOC: ERS 13:19 → IMCU/EMU 18:40
PROVIDERS: ADMIT Internal Medicine; ATTEND Internal Medicine
PROC: 5A09357 Assistance with Respiratory Ventilation, Less than 24 Consecutive Hours, Continuous Positive Airway Pressure (ICD-10-PCS; principal; 2017-07-20)
PROC: 30233N1 Transfusion of Nonautologous Red Blood Cells into Peripheral Vein, Percutaneous Approach (ICD-10-PCS; 2017-07-21)
DX: A41.89 Other specified sepsis (principal); J15.9 Unspecified bacterial pneumonia; J96.21 Acute and chronic respiratory failure with hypoxia; C34.11 Malignant neoplasm of upper lobe, right bronchus or lung; J44.9 Chronic obstructive pulmonary disease, unspecified; D64.81 Anemia due to antineoplastic chemotherapy; E87.1 Hypo-osmolality and hyponatremia; R04.2 Hemoptysis; E11.9 Type 2 diabetes mellitus without complications; T45.1X5A Adverse effect of antineoplastic and immunosuppressive drugs, initial encounter; I10 Essential (primary) hypertension; E78.5 Hyperlipidemia, unspecified; Z87.891 Personal history of nicotine dependence; K21.9 Gastro-esophageal reflux disease without esophagitis; Z51.5 Encounter for palliative care; Z66 Do not resuscitate
CPT/HCPCS: 36415; 36416; 36430; 51701; 70450; 71010; 71275; 80048; 80053; 80202; 81003; 81015; 82248; 82553; 83605; 83615; 84100; 84484; 84550; 85007; 85025; 85027; 86850; 86900; 86901; 87040; 87086; 93005; 94640; 94660; 96360; 96361; 96365; 96367; A4216; A4353; G8978-GP-CJ; G8979-GP-CH; G8987-GO-CJ; G8988-GO-CI; J0692; J2543; J3370; J7050; J7620; P9016